=== PATIENT | male | born 1985 | race Two or more races ===

== ENCOUNTER 2016-10-10 12:32 | Emergency (ER) | payer SELFPAY ==
[~2016-10-10] VITALS: Ht 157.5 cm; Wt 79.8 kg
[2016-10-10 12:38] VITALS: BP 132/77
== END 2016-10-10 14:45 | disposition left against medical advice (07) ==
LOC: ED 12:32
DX: H10.211 Acute toxic conjunctivitis, right eye (principal); F10.129 Alcohol abuse with intoxication, unspecified; T47.2X5A Adverse effect of stimulant laxatives, initial encounter; Y92.89 Other specified places as the place of occurrence of the external cause